=== PATIENT | female | born 1970 | race American Indian/Alaskan Native ===

== ENCOUNTER 2017-12-26 14:32 | Outpatient (CLI) | payer OTHER ==
--- NOTE | 2017-12-27 10:20 | Mammography Report ---
BILATERAL DIGITAL SCREENING MAMMOGRAM with CAD and DIGITAL BREAST TOMOSYNTHESIS (DBT) : 12/26/17 CLINICAL: Routine screening.History of bilateral reduction mammoplasty. COMPARISON:01/29/09 left mammogram FINDINGS: The breasts are mostly fatty with a few scattered bilateral fibroglandular densities.A left upper asymmetry on the MLO view is unchanged compared to the previous mammogram. Mild bilateral benign scar. Mild left upper inner benign fat necrosis with calcifications. No mass, architectural distortion or suspicious calcifications. IMPRESSION: No mammographic evidence of malignancy. BI-RADS CATEGORY: 2 - - Benign RECOMMENDATION: Routine mammographic screening in one year. COMMENT: Patient follow-up letters are generated by our [employer] application.
== END 2017-12-26 14:33 | disposition home or self-care (01) ==
LOC: SPVWC 14:32
PROVIDERS: ATTEND Obstetrics & Gynecology
DX: Z12.31 Encounter for screening mammogram for malignant neoplasm of breast (principal); I10 Essential (primary) hypertension; K21.9 Gastro-esophageal reflux disease without esophagitis; E66.9 Obesity, unspecified
CPT/HCPCS: 77063; 77067